=== PATIENT | female | born 1955 | race Caucasian/White ===

== ENCOUNTER → 2018-08-14 09:42 | Outpatient (CLI) | payer BC, SELFPAY ==
[2018-08-14 12:14] LABS: Hematocrit 39.1 % (37-47); Hemoglobin 13.5 g/dl (12.0-15.0); Mean Corp Hgb Conc 34.5 g/gl (32-36); Mean Corpuscular Hgb 34.2 pg (27.0-32.0); Mean Platelet Vol. 13.2 fl (6.2-12.0); Platelet Count 167 K/mm3 (150-450); RBC Distribution Width CV 11.8 % (11.6-14.6); RBC Distribution Width SD 42.5 fl (35.1-43.9); Red Blood Count 3.95 M/mm3 (4.2-5.4); White Blood Count 3.6 K/mm3 (4.4-11.0)
[2018-08-14 12:21] LABS: Scan Indicated on CBC? Y/N NO
[2018-08-14 12:27] LABS: ALB/GLOB Ratio 1.1 RATIO (0.9-2.4); AST(SGOT) 59 U/L (15-37); Alanine Aminotransfer ALT/SGPT 63 U/L (13-56); Albumin, Serum 4.2 g/dL (3.2-5.0); Alkaline Phosphatase 104 U/L (45-117); Anion Gap 6 (5-15); BUN 14 mg/dL (7-18); BUN/Creat Ratio 22.3 RATIO (10-20); CPK Total, Creatine Kinase 583 U/L (26-192); Calcium,Total 8.4 mg/dL (8.5-10.1); Chloride 100 mmol/L (98-107); Creatinine, Serum 0.63 mg/dL (0.55-1.02); EST Glomerular Filtration Rate 102 mL/min (>60); Est Glom Filt Rate - Afr Amer 123 mL/min (>60); Globulin 3.7 g/dL (2.2-4.2); Glucose 94 mg/dL (74-106); Potassium 3.4 mmol/L (3.5-5.1); Protein, Total 7.9 g/dL (6.4-8.2); Sodium Level 132 mmol/L (136-145)
[2018-08-15 15:39] LABS: ANTINUCLEAR ANTIBODIES DIRECT Negative (Negative)
[2018-08-18 08:22] LABS: Aldolase 6.2 U/L (3.3-10.3)
== END ==
PROVIDERS: Family Provider Family Medicine; PCP Family Medicine; Referring Provider Dermatology Pediatric Dermatology; Visit Provider Dermatology Pediatric Dermatology
DX: L30.9 Dermatitis, unspecified (principal); I73.00 Raynaud's syndrome without gangrene
CPT/HCPCS: 36415; 80053; 82085; 82550; 85027; 86038

== ENCOUNTER → 2020-01-08 09:19 | Outpatient (CLI) | payer MEDICARE, BC, SELFPAY ==
[2020-01-08 12:47] LABS: Absolute Lymphocyte Count 0.78 X10^3/uL (0.83-4.51); Absolute Neutrophil Count 2.7 X10^3/uL (2.0-7.7); Basophil# 0.02 X10^3/uL; Basophil% 0.5 % (0-1); Eosinophil# 0.09 X10^3/uL; Eosinophils% 2.2 % (0-5); Hematocrit 38.2 % (37-47); Hemoglobin 12.4 g/dL (12.0-15.0); Lymphocyte # 0.78 X10^3/ul (4.0); Lymphocyte % 19.4 % (19-41); Mean Corp Hgb Conc 32.5 g/dL (32-36); Mean Corpuscular Hgb 32.1 pg (27.0-32.0); Mean Platelet Vol. 12.9 fl (6.2-12.0); Monocyte# 0.41 X10^3/uL; Monocyte% 10.2 % (0-10); NRBC Flagged by Analyzer 0 % (0-5); Neutrophil # 2.71 X10^3/uL (2.7-7.7); Neutrophil % 67.2 % (47-70); Platelet Count 204 K/mm3 (150-450); RBC Distribution Width CV 11.8 % (11.6-14.6); RBC Distribution Width SD 42.7 fl (35.1-43.9); Red Blood Count 3.86 M/mm3 (4.2-5.4)
[2020-01-08 13:13] LABS: Cholesterol 181 mg/dL (200); High Density Lipoprotein 98 mg/dL; Triglycerides 54 mg/dL; Very Low Density Lipoprotein 11 mg/dL (5-40)
== END ==
PROVIDERS: PCP Family Medicine; Visit Provider Family Medicine
DX: Z00.00 Encounter for general adult medical examination without abnormal findings (principal); I73.00 Raynaud's syndrome without gangrene; E78.5 Hyperlipidemia, unspecified
CPT/HCPCS: 36415; 80061; 85025

== ENCOUNTER 2020-02-07 11:58 | Emergency (ER) | payer MEDICARE, BC, SELFPAY ==
[2020-02-07 11:59] VITALS: PULSE 76; RESP 16; TEMP 36.8; O2SAT 99; BMI 18.1
[2020-02-07 12:05] VITALS: BP 124/68
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
[2020-02-07] MEDS: Diphth,Pertuss(Acell),Tet Vac 0.5 ML Vial IM (12:46)
== END 2020-02-07 13:30 | disposition home or self-care (01) ==
PROVIDERS: Emergency Provider Emergency Medicine; PCP Family Medicine
DX: S30.0XXA Contusion of lower back and pelvis, initial encounter (principal); S50.311A Abrasion of right elbow, initial encounter; S80.212A Abrasion, left knee, initial encounter; S80.211A Abrasion, right knee, initial encounter; Y93.55 Activity, bike riding
CPT/HCPCS: 73502; 90471; 90715; 99285

== ENCOUNTER 2020-04-11 11:30 | Outpatient (RCR) | payer MEDICARE, BC, SELFPAY ==
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
== END 2020-04-11 19:00 | disposition home or self-care (01) ==
LOC: PT 11:30
PROVIDERS: PCP Family Medicine; Referring Provider Family Medicine; Visit Provider Family Medicine
DX: M25.551 Pain in right hip (principal); R07.81 Pleurodynia; V19.9XXD Pedal cyclist (driver) (passenger) injured in unspecified traffic accident, subsequent encounter
CPT/HCPCS: 97110; 97140; 97161; 97530

== ENCOUNTER 2020-10-13 09:40 | Outpatient (RCR) | payer MEDICARE, BC, SELFPAY ==
[2020-10-13] MEDS: COVID-19 VACC, MRNA(PFIZER)/PF 30 MCG/0.3 ML SYRINGE IM (11:47)
[2020-11-03] MEDS: COVID-19 VACC, MRNA(PFIZER)/PF 30 MCG/0.3 ML SYRINGE IM (11:35)
== END 2020-10-13 23:59 ==
LOC: IMMUN 09:40
PROVIDERS: PCP Family Medicine; Visit Provider Family Medicine
DX: Z23 Encounter for immunization (principal)
CPT/HCPCS: 0001A; 0002A

== ENCOUNTER → 2022-11-02 | Outpatient (CLI) | payer MEDICARE, BC, SELFPAY ==
[2022-11-05 14:32] LABS: Anti-dsDNA Ab <1 IU/mL (0-9)
== END | disposition home or self-care (01) ==
LOC: MTLAB 15:26
PROVIDERS: PCP Family Medicine; Referring Provider Physician Assistant Medical; Visit Provider Physician Assistant Medical
DX: T69.1XXA Chilblains, initial encounter (principal); X31.XXXA Exposure to excessive natural cold, initial encounter
CPT/HCPCS: 36415; 86225

== ENCOUNTER 2023-07-25 08:51 | Outpatient (CLI) | payer MEDICARE, BC, SELFPAY ==
--- OUTSIDE RECORDS SUMMARY | 2023-07-25 09:19 | XMS RPT_ITS | CCD ---
Author Name Unknown Address [address] [place] [address] [place] [address] Organization [facility] Care Team Providers Care Java Designer Name Role Phone Holly Marie LPN Unavailable Unavailab le Allergies Allergy Classification Reported Allergen(s) Allergy Type Date of Onset Reaction(s) Facility (1 source) Cat drug allergy [facility] Work Phone: Medications Completed/Discontinued Medications Medication Drug Class(es) Dates Sig (Normalized) Sig (Original) amoxicillin 875 mg oral tablet (2 sources) Penicillin-class Antibacterial Start: 09-02-2014 End: 12-24-2014 take 1 tablet by mouth twice daily AMOXICILLIN 875 MG TABS 1 po Twice daily x 10 days AMOXICILLIN [id number] Anum A Karen, DO aspirin 81 mg oral tablet (2 sources) Nonsteroidal Anti-inflammatory Drug Start: 09-12-2012 End: 01-20-2013 take 1 tablet by mouth once daily ADULT ASPIRIN EC LOW STRENGTH 81 MG TBEC One tablet by mouth daily ASPIRIN [id number] Carmela Hopson MD azithromycin 250 mg oral tablet (1 source) Macrolide Antimicrobial Start: 07-27-2015 take 2 tablets by mouth once, then take 1 tablet by mouth once daily, then take 2-5 tablets by mouth AZITHROMYCIN 250 MG TABS 2 po on day 1 then 1 po daily on days 2-5 AZITHROMYCIN [id number] Anum Jones, DO calcium (2 sources) Phosphate Binder, Calcium take 1 tablet by mouth once daily CALCIUM + D + K TABS One tablet by mouth daily CALCIUM-VITAMIN D-VITAMIN K TABS [id number] Carmela Hopson MD Problems Active Problems Problem Classification Problem Date Documented Date Episodic/Chronic Diseases of white blood cells (1 source) Decreased white blood cell count, unspecified; Translations: [Decreased white blood cell count, unspecified] Onset: 03-23-2013 03-23-2013 Chronic Essential hypertension (2 sources) Essential hypertension; Translations: [Hypertensive episode] Onset: 09-12-2012 01-20-2013 Chronic Nutritional deficiencies (1 source) Vitamin D deficiency; Translations: [Vitamin D deficiency, unspecified] Onset: 10-27-2013 10-27-2013 Chronic Other upper respiratory disease (1 source) Allergic rhinitis; Translations: [Allergic rhinitis, unspecified] Onset: 2015 2015 Chronic Unclassified (1 source) Venereal disease screening ; Translations: [Encounter for screening for infections with a predominantly sexual mode of transmission] Onset: 07-17-2013 07-17-2013 Unclassified (1 source) Immunization status; Translations: [Other specified health status] Onset: 01-20-2013 01-20-2013 Unclassified (1 source) General examination of patient ; Translations: [Encounter for other general examination] Onset: 06-02-2010 06-02-2010 Unclassified (1 source) Influenza vaccination ; Translations: [Encounter for immunization] Onset: 07-01-2017 07-01-2017 Unclassified (1 source) Screening for malignant neoplasm of breast ; Translations: [Encounter for other screening for malignant neoplasm of breast] Onset: 01-20-2013 01-20-2013 Past or Other Problems Problem Classification Problem Date Documented Date Episodic/Chronic Abdominal pain (1 source) Pain in pelvis; Translations: [Pelvic and perineal pain] Onset: 09-12-2012 09-12-2012 Episodic Genitourinary symptoms and ill-defined conditions (2 sources) Dysuria; Translations: [Hematuria, unspecified] Onset: 09-12-2012 09-12-2012 Episodic Lymphadenitis (1 source) Cervical lymphadenopathy; Translations: [Localized enlarged lymph nodes] Onset: 08-09-2014 08-09-2014 Episodic Malaise and fatigue (1 source) Fatigue; Translations: [Other fatigue] Onset: 10-13-2013 10-13-2013 Episodic Other connective tissue disease (2 sources) Pain in calf; Translations: [Cramp] Onset: 06-02-2010 06-02-2010 Episodic Other inflammatory condition of skin (1 source) Pruritus ani; Translations: [Pruritus ani] Onset: 08-18-2010 08-18-2010 Episodic Other liver diseases (1 source) Elevated levels of transaminase & lactic acid dehydrogenase; Translations: [Nonspecific elevation of levels of transaminase and lactic acid dehydrogenase [LDH]] Onset: 01-21-2013 01-21-2013 Episodic Other nutritional; endocrine; and metabolic disorders (1 source) Underweight; Translations: [Underweight] Onset: 06-02-2010 06-02-2010 Episodic Other upper respiratory infections (1 source) Acute sinusitis; Translations: [Acute sinusitis, unspecified] Onset: 07-27-2015 08-28-2015 Episodic Otitis media and related conditions (1 source) Dysfunction of eustachian tube; Translations: [Other specified disorders of Eustachian tube, unspecified ear] Onset: 2015 2015 Episodic Unclassified (1 source) Blood chemistry abnormal; Translations: [Abnormal finding of blood chemistry, unspecified] Onset: 08-31-2009 08-31-2009 Episodic Results Test Name Value Interpretation Reference Range Facil ity Vital Signs Date Time Vital Sign Value Performing Clinician John alaniz 07-01-2017 17:18-0500 Body Temperature 97.9 [degF] Holly [facility] Work Phone: 07-27-2015 10:53-0500 BMI (Body Mass Index) 18.3 kg/m2 Holly Marie [facility] Work Phone: 07-27-2015 10:53-0500 BP Diastolic 70 mm[Hg] Holly [facility] Work Phone: 07-27-2015 10:53-0500 BP Systolic 118 mm[Hg] [facility] Work Phone: 07-27-2015 10:53-0500 BSA (Body Surface Area) 1.54 m2 Holly Marie LPN [facility] Work Phone: 07-27-2015 10:53-0500 Pulse (Heart Rate) 100 /min [facility] Work Phone: 07-27-2015 10:53-0500 Weight 49.9 kg Holly Marie LPN [facility] Work Phone: 08-31-2014 10:59-0500 Respiratory Rate 16 /min Holly Marie LPN [facility] Work Phone: 09-12-2012 15:54-0500 BP Diastolic 82 mm[Hg] Holly Marie LPN [facility] Work Phone: 09-12-2012 15:54-0500 BP Diastolic 72 mm[Hg] Holly Marie LPN [facility] Work Phone: 09-12-2012 15:54-0500 BP Systolic 149 mm[Hg] Holly Marie LPN [facility] Work Phone: 09-12-2012 15:54-0500 BP Systolic 153 mm[Hg] Holly Marie LPN [facility] Work Phone: 03-07-2009 10:45-0400 Height 165.1 cm Holly Marie LPN [facility] Work Phone: 03-07-2009 10:45-0400 Weight 51.36 kg Holly Marie LPN [facility] Work Phone: Procedures Date Procedure Procedure Detail Performing Clinician Start: 07-01-2017 End: 07-01-2017 Cciiv4 vaccine preservative free 0.5 ml im use Mehul RAMIREZ Work Phone: Start: 10-27-2013 End: 11-05-2013 25-Hydroxyvitamin D2+25-Hydroxyvitamin D3 [Mass/volume] in Serum or Plasma Carmela Hopson MD Start: 10-13-2013 End: 11-05-2013 25-Hydroxyvitamin D2+25-Hydroxyvitamin D3 [Mass/volume] in Serum or Plasma Carmela Hopson MD Start: 10-13-2013 End: 10-21-2013 C reactive protein [Mass/volume] in Serum or Plasma by High sensitivity method Carmela Hopson MD Start: 10-13-2013 End: 10-21-2013 Glucose [Mass/volume] in Serum or Plasma Carmela Hopson MD Start: 10-13-2013 End: 10-21-2013 Hemoglobin A1c/Hemoglobin.total in Blood Carmela Hopson MD Start: 10-13-2013 End: 10-21-2013 Homocysteine [Moles/volume] in Serum or Plasma Carmela Hopson MD Start: 10-13-2013 End: 10-27-2013 Testosterone Free [Mass/volume] in Serum or Plasma Carmela Hopson MD Start: 10-13-2013 End: 10-21-2013 Thyrotropin [Units/volume] in Serum or Plasma Carmela Hopson MD Start: 07-17-2013 End: 08-13-2013 *CBC with Differential Carmela Hopson MD Start: 07-17-2013 End: 08-13-2013 *CMP Complete Metabolic Panel Carmela Hopson MD Start: 07-17-2013 End: 08-13-2013 *HEBSAG - Hep B Surface Antigen 6510 Carmela Hopson MD Start: 07-17-2013 End: 08-13-2013 *HECAB Hepatitis C Antibody Carmela Hopson MD Start: 07-17-2013 End: 08-13-2013 *HIV antibody Carmela Hopson MD Start: 07-17-2013 End: 08-13-2013 0184-1 Carmela Hopson MD Start: 07-17-2013 End: 07-20-2013 Bacteria identified in Stool by Culture Carmela Hopson MD Start: 07-17-2013 End: 08-13-2013 Chest x-ray Carmela Hopson MD Start: 07-17-2013 End: 07-24-2013 Ova and parasites identified in Stool by Concentration Carmela Hopson MD Start: 07-17-2013 End: 08-13-2013 Reagin Ab [Presence] in Cerebral spinal fluid by VDRL Carmela Hopson MD Start: 07-17-2013 End: 07-24-2013 Urinalysis complete panel - Urine Carmela Hopson MD Start: 06-18-2013 End: 06-19-2013 25-Hydroxyvitamin D2+25-Hydroxyvitamin D3 [Mass/volume] in Serum or Plasma Carmela Hopson MD Start: 01-22-2013 End: 01-30-2013 Us abdominal real time w/image documentation Carmela Hopson MD Start: 01-21-2013 End: 01-23-2013 *HEBSAG - Hep B Surface Antigen 6510 Carmela Hopson MD Start: 01-21-2013 End: 01-23-2013 *HECAB Hepatitis C Antibody Carmela Hopson MD Start: 01-21-2013 End: 01-23-2013 Hepatitis A virus IgM Ab [Presence] in Serum Carmela Hopson MD Start: 01-21-2013 End: 01-23-2013 Hepatitis B virus surface Ab [Units/volume] in Serum Carmela Hopson MD Start: 01-21-2013 End: 01-23-2013 Us abdominal real time w/image limited Carmela Hopson MD Start: 01-20-2013 End: 01-20-2013 *CMP Complete Metabolic Panel Carmela Hopson MD Start: 01-20-2013 End: 01-20-2013 *UA - Urinalysis w/o Micro Carmela Hopson MD Start: 01-20-2013 End: 01-21-2013 25-Hydroxyvitamin D2+25-Hydroxyvitamin D3 [Mass/volume] in Serum or Plasma Carmela Hopson MD Start: 01-20-2013 End: 01-20-2013 CBC W Auto Differential panel - Blood Cramela Hopson MD Start: 01-20-2013 End: 01-20-2013 Lipid 1996 panel - Serum or Plasma Carmela Hopson MD Start: 01-20-2013 End: 01-21-2013 Mammogram, Screening, both breasts Carmela Hopson MD Start: 09-12-2012 End: 11-12-2012 Bacteria identified in Urine by Culture Carmela Hopson MD Start: 09-12-2012 End: 01-20-2013 Urinalysis complete panel - Urine Carmela Hopson MD Start: 09-12-2012 End: 01-20-2013 Urnls dip stick/tablet rgnt non-auto w/o micrscp Carmela Hopson MD Start: 09-12-2012 End: 08-13-2013 Us pelvic nonobstetric real-time image complete Carmela Hopson MD Start: 08-18-2010 End: 08-18-2010 Follow-up visit Carmela Hopson MD Start: 06-02-2010 End: 06-02-2010 Assay of magnesium Carmela Hopson MD Start: 06-02-2010 End: 06-02-2010 Assay of thyroid stimulating hormone tsh Carmela Hopson MD Start: 06-02-2010 End: 06-02-2010 Blood count complete automated Carmela Hopson MD Start: 06-02-2010 End: 06-02-2010 Comprehensive metabolic panel Carmela Hopson MD Start: 06-02-2010 End: 06-02-2010 Follow Up Appt 1 year Carmela Hopson MD Start: 06-02-2010 End: 06-02-2010 Follow-up visit Carmela Hopson MD Start: 06-02-2010 End: 06-02-2010 Lipid panel Carmela Hopson MD Plan of Treatment Date Care Activity Detail Author Start: 07-01-2017 End: 07-01-2017 Appointment Appointment [facility] Work Phone: Start: 2015 End: 08-23-2015 ENT referral ENT referral Jeremy Holman, [address] [place] [address], [id number] [facility] Work Phone: Start: 12-10-2014 End: 09-24-2014 Us soft tissue head & neck real time imge docm US Thyroid (Soft tissue neck) [facility] Work Phone: Start: 08-31-2014 End: 08-31-2014 Us soft tissue head & neck real time imge docm US Thyroid (Soft tissue neck) [facility] Work Phone: Start: 10-27-2013 End: 11-05-2013 25-Hydroxyvitamin D2+25-Hydroxyvitamin D3 [Mass/volume] in Serum or Plasma *Vitamin D (Calciferol) [facility] Work Phone: Start: 10-13-2013 End: 11-05-2013 25-Hydroxyvitamin D2+25-Hydroxyvitamin D3 [Mass/volume] in Serum or Plasma *Vitamin D (Calciferol) [facility] Work Phone: Start: 10-13-2013 End: 10-21-2013 C reactive protein (hsCRP) *CRP - C-Reative Protein [facility] Work Phone: Start: 10-13-2013 End: 10-21-2013 Glucose mass conc *Glucose, Fasting [facility] Work Phone: Start: 10-13-2013 End: 10-21-2013 Hemoglobin A1c/Hemoglobin.total mass fraction (Bld) *HgA1C [facility] Work Phone: Start: 10-13-2013 End: 10-21-2013 Homocysteine *Homocystine [facility] Work Phone: Start: 10-13-2013 End: 10-27-2013 Testosterone Free [Mass/volume] in Serum or Plasma *TESTOF Testosterone Free [facility] Work Phone: Start: 10-13-2013 End: 10-21-2013 Thyroid stimulating hormone (TSH) *TSH [facility] Work Phone: Start: 07-17-2013 End: 08-13-2013 *CBC with Differential *CBC with Differential [facility] Work Phone: Start: 07-17-2013 End: 08-13-2013 *CMP Complete Metabolic Panel *CMP Complete Metabolic Panel [facility] Work Phone: Start: 07-17-2013 End: 08-13-2013 *HEBSAG - Hep B Surface Antigen 6510 *HEBSAG - Hep B Surface Antigen 6510 [facility] Work Phone: Start: 07-17-2013 End: 08-13-2013 *HECAB Hepatitis C Antibody *HECAB Hepatitis C Antibody [facility] Work Phone: Start: 07-17-2013 End: 08-13-2013 *HIV antibody *HIV antibody [facility] Work Phone: Start: 07-17-2013 End: 07-20-2013 Bacteria stool culture *CUST - Culture Stool [facility] Work Phone: Start: 07-17-2013 End: 08-13-2013 Chest x-ray X-Ray, Chest, PA & Lateral [facility] Work Phone: Start: 07-17-2013 End: 07-24-2013 Ova & parasites in stool *Ova & Parasites, Stool [facility] Work Phone: Start: 07-17-2013 End: 08-13-2013 Reagin Ab [Presence] in Cerebral spinal fluid by VDRL *VDRLSF VDRL [facility] Work Phone: Start: 07-17-2013 End: 07-24-2013 Urinalysis complete panel - Urine *UAC- Urinalysis, Complete w/ Micro [facility] Work Phone: Start: 07-17-2013 End: 08-13-2013 Other Other [facility] Work Phone: Start: 06-18-2013 End: 06-19-2013 25-Hydroxyvitamin D2+25-Hydroxyvitamin D3 [Mass/volume] in Serum or Plasma *Vitamin D (Calciferol) [facility] Work Phone: Start: 01-22-2013 End: 01-30-2013 Us abdominal real time w/image documentation US Abdomen Complete [facility] Work Phone: Start: 01-21-2013 End: 01-23-2013 *HEBSAG - Hep B Surface Antigen 6510 *HEBSAG - Hep B Surface Antigen 6510 [facility] Work Phone: Start: 01-21-2013 End: 01-23-2013 *HECAB Hepatitis C Antibody *HECAB Hepatitis C Antibody [facility] Work Phone: Start: 01-21-2013 End: 01-23-2013 BSA (Body Surface Area) *HEBSAB - Hep B Surface Antibody 6395 [facility] Work Phone: Start: 01-21-2013 End: 01-23-2013 Hepatitis A virus IgM Ab [Presence] in Serum *HEAM Hepatitis A Antibdy - IGM [facility] Work Phone: Start: 01-21-2013 End: 01-23-2013 Us abdominal real time w/image limited US Abdomen, limited [facility] Work Phone: Start: 01-20-2013 End: 01-20-2013 *CMP Complete Metabolic Panel *CMP Complete Metabolic Panel [facility] Work Phone: Start: 01-20-2013 End: 01-20-2013 *UA - Urinalysis w/o Micro *UA - Urinalysis w/o Micro [facility] Work Phone: Start: 01-20-2013 End: 01-21-2013 25-Hydroxyvitamin D2+25-Hydroxyvitamin D3 [Mass/volume] in Serum or Plasma *Vitamin D (Calciferol) [facility] Work Phone: Start: 01-20-2013 End: 01-20-2013 CBC W Auto Differential panel - Blood *CBC without Diff [facility] Work Phone: Start: 01-20-2013 End: 01-20-2013 Lipid panel [AGGREGATE] *Lipid Profile [facility] Work Phone: Start: 01-20-2013 End: 01-20-2013 Mammogram, Screening, both breasts Mammogram, Screening, both breasts [facility] Work Phone: Start: 09-12-2012 End: 01-20-2013 Urinalysis complete panel - Urine *UAC- Urinalysis, Complete w/ Micro [facility] Work Phone: Start: 09-12-2012 End: 11-12-2012 Urine culture, bacteria *CUUR - Culture, Urine ([place] Count) [facility] Work Phone: Start: 09-12-2012 End: 01-20-2013 Urnls dip stick/tablet rgnt non-auto w/o micrscp UA Dipstick (Office) [facility] Work Phone: Start: 09-12-2012 End: 08-13-2013 Us pelvic nonobstetric real-time image complete US Pelvis [facility] Work Phone: Start: 08-18-2010 End: 08-18-2010 Follow-up visit Follow Up as needed [facility] Work Phone: Start: 06-02-2010 End: 06-02-2010 Blood count complete automated *CBC without Diff [facility] Work Phone: Start: 06-02-2010 End: 06-02-2010 Comprehensive metabolic panel *CMP Complete Metabolic Panel [facility] Work Phone: Start: 06-02-2010 End: 06-02-2010 Follow Up Appt 1 year Follow Up Appt 1 year [facility] Work Phone: Start: 06-02-2010 End: 06-02-2010 Follow-up visit Follow Up as needed [facility] Work Phone: Start: 06-02-2010 End: 06-02-2010 Iiv3 vaccine split virus 0.5 ml dosage im use Flu vaccine > age 3 yr (with preservative) [facility] Work Phone: Start: 06-02-2010 End: 06-02-2010 Lipid panel *Lipid Profile [facility] Work Phone: Start: 06-02-2010 End: 06-02-2010 Magnesium *Magnesium [facility] Work Phone: Start: 06-02-2010 End: 06-02-2010 Thyroid stimulating hormone (TSH) *TSH [facility] Work Phone: Immunizations Immunization Date Immunization Notes Care Provider Macey gomez 01-20-2013 TD(adult) unspecifie d formulation Holly Marie LPN [facility] Work Phone: 06-02-2010 influenza, seasonal, injectable Holly Marie LPN [facility] Work Phone: Additional Source Comments FOR RECORDS PERTAINING TO PATIENTS WHO ARE OR HAVE BEEN ENROLLED IN A CHEMICAL DEPENDENCY/SUBSTANCEABUSE PROGRAM, SOME INFORMATION MAY BE OMITTED. This clinical summary was aggregated from multiple sources. Caution should be exercised in using it in the provision of clinical care. This summary normalizes information from multiple sources, and as a consequence, information in this document may materially change the coding, format and clinical context of patient data. In addition, data may be omitted in some cases. CLINICAL DECISIONS SHOULD BE BASED ON THE PRIMARY CLINICAL RECORDS. [facility] [employer] provides no warranty or guarantee of the accuracy or completeness of information in this document.
[2023-07-25 10:13] LABS: Absolute Neutrophil Count 2.9 X10^3/uL (2.0-7.7); Basophil# 0.01 X10^3/uL; Basophil% 0.2 % (0-1); Eosinophil# 0.04 X10^3/uL; Eosinophils% 0.9 % (0-5); Hematocrit 40.4 % (37-47); Hemoglobin 13.9 g/dL (12.0-15.0); Lymphocyte % 26.4 % (19-41); Mean Corp Hgb Conc 34.4 g/dL (32-36); Mean Corpuscular Hgb 33.4 pg (27.0-32.0); Mean Corpuscular Volume 97.1 fL (81-99); Mean Platelet Vol. 11.9 fl (6.2-12.0); Monocyte# 0.38 X10^3/uL; Monocyte% 8.4 % (0-10); NRBC Flagged by Analyzer 0 % (0-5); Neutrophil % 63.7 % (47-70); Platelet Count 214 K/mm3 (150-450); RBC Distribution Width CV 11.4 % (11.6-14.6); RBC Distribution Width SD 40.7 fl (35.1-43.9); Red Blood Count 4.16 M/mm3 (4.2-5.4); White Blood Count 4.6 K/mm3 (4.4-11.0)
[2023-07-25 11:57] LABS: AST(SGOT) 40 U/L (15-37); Alanine Aminotransfer ALT/SGPT 51 U/L (13-56); Albumin, Serum 3.8 g/dL (3.2-5.0); Alkaline Phosphatase 79 U/L (45-117); Anion Gap 3 (5-15); BUN 17 mg/dL (7-18); BUN/Creat Ratio 24.9 RATIO (10-20); Chloride 104 mmol/L (98-107); Cholesterol 204 mg/dL (200); Creatinine, Serum 0.68 mg/dL (0.55-1.02); EST Glomerular Filtration Rate 91 mL/min (>60); Est Glom Filt Rate - Afr Amer 110 mL/min (>60); Glucose 104 mg/dL (74-106); High Density Lipoprotein 114 mg/dL; Potassium 4.1 mmol/L (3.5-5.1); Protein, Total 7.8 g/dL (6.4-8.2); Sodium Level 133 mmol/L (136-145); Triglycerides 45 mg/dL; Very Low Density Lipoprotein 9 mg/dL (5-40)
== END 2023-07-25 23:59 | disposition home or self-care (01) ==
PROVIDERS: PCP Family Medicine; Referring Provider Family Medicine; Visit Provider Family Medicine
DX: I73.00 Raynaud's syndrome without gangrene (principal); E78.5 Hyperlipidemia, unspecified; L50.1 Idiopathic urticaria
CPT/HCPCS: 36415; 80053; 80061; 85025

== ENCOUNTER → 2024-10-14 | Outpatient (CLI) | payer MEDICARE, BC, SELFPAY ==
--- NOTE | 2024-10-14 12:54 | BD_ITS ---
PROCEDURE: DEXA BONE DENSITY STUDY REASON FOR EXAM: None provided. TECHNIQUE: DEXA scan of the lumbar spine and both hips. COMPARISON: None. FINDINGS: T-SCORES Lumbar spine, L1-L4: 0.705 g per cm2 (-3.1) Left femoral neck: 0.573 g per cm2 (-2.5) Left total hip: 0.701 g per cm2 (-2.0) Right femoral neck: 0.573 g per cm2 (-2.5) Right total hip: 0.648 g per cm2 (-2.4) FRAX* Results: 10 Year Probability of Fracture: Major Osteoporotic Fracture(2): 12.0% Hip Fracture(1): 3.3% *FRAX is a trademark of the [employer]'s [place] [employer] Met[employer], World Health Organization (WHO) Collaborating [place]. 1-The 10-year probability of fracture may be lower than reported if the patient has received treatment. 2-Major Osteoporotic Fracture: Clinical Spine, Forearm, Hip or Shoulder. BD/Dexa Bone Density Study IMPRESSION: 1. Osteoporosis. 2. No priors are available for comparison. 3. Additional description as above. r Reading Location: [place]
== END | disposition home or self-care (01) ==
LOC: OPBD 12:49
PROVIDERS: PCP Family Medicine; Referring Provider Family Medicine; Visit Provider Family Medicine
DX: M81.0 Age-related osteoporosis without current pathological fracture (principal); Z13.820 Encounter for screening for osteoporosis
CPT/HCPCS: 77080

== ENCOUNTER → 2024-11-12 | Outpatient (CLI) | payer MEDICARE, BC, SELFPAY ==
[2024-11-12 09:42] LABS: Ionized Calcium Order ORDER TUBE
[2024-11-12 13:37] LABS: PTHIN 40 pg/mL (11-61)
[2024-11-12 14:22] LABS: Vitamin D,25 Hydroxy 40.6 ng/mL (30-100)
== END | disposition home or self-care (01) ==
LOC: BFHLAB 08:41
PROVIDERS: PCP Family Medicine; Visit Provider Family Medicine
DX: M81.0 Age-related osteoporosis without current pathological fracture (principal); E55.9 Vitamin D deficiency, unspecified
CPT/HCPCS: 36415; 82306; 83970